=== PATIENT | female | born 1940 | race Two or more races ===

== ENCOUNTER 2022-09-16 17:08 | Emergency (ER) | payer MEDICARE, SELFPAY ==
[2022-09-16] VITALS (8 sets, daily range): BP systolic 164; BP diastolic 68; PULSE 57–68; RESP 16–22; TEMP 36.7; O2SAT 98; BMI 29.3
--- NOTE | 2022-09-16 17:19 | ECG_ITS ---
[facility] Test Date: 2022-09-16 Pat Name: JV JUAREZ Department: Room: - Gender: Female [employer]: : 1940 Requested By: Order Number: [id number] Reading MD: TRACEY KAM Measurements Intervals Webb Rate: 65 P: 60 WI: 148 QRS: -28 QRSD: 90 T: 30 QT: 418 QTc: 430 Interpretive Statements 1100 Sinus rhythm 1102 Sinus arrhythmia 7202 Moderate left axis deviation 9110 normal ECG No previous ECG available for comparison Electronically Signed On 09-17-2022 7:21:17 EDT by TRACEY KAM
--- NOTE | 2022-09-16 17:19 | XR_ITS ---
The [address] [address] Patient Name: JV JUAREZ MRN: [id number] date: 1940 Sex: F Assigned Patient Location: ER Current Patient Location: ER Accession/Order Number: [id number] Exam Date: 09/16/2022 17:45 Report Date: 09/16/2022 18:03 At the request of: YANET ROMERO Procedure: XR chest 1V EXAMINATION: XR chest 1V HISTORY: Cough COMPARISON: None. TECHNIQUE: Portable chest FINDINGS: The lung parenchyma is free of consolidation or infiltrate. No pneumothorax or pleural effusion. The cardiac, mediastinal and hilar contours are normal. The visualized osseous structures exhibit no gross abnormality. XR/XR chest 1V IMPRESSION: No acute cardiopulmonary abnormality. Electronically authenticated by: JOSE SAAB Date: 09/16/2022 18:03
--- NOTE | 2022-09-16 17:20 | ED_ITS ---
Documented by User: KATIA Jones 09/16/22 18:16 HPI - URI/Sore Throat General Chief Complaint: Upper Respiratory Infection Stated Complaint: poss chf Time Seen by Provider: 09/16/22 17:09 Source: patient Limitations: no limitations History of Present Illness HPI Narrative: patient is an 82-year-old female with a history of hypertension, Parkinson's disease who presents to the emergency department with her family for the evaluation of a cough for the last several days. Patient states she has a minimal chronic cough from ALLERGIES but thinks in the last several days her cough has been worse. Her family members are concerned that she may have congestive heart failure. The patient has no history of congestive heart failure. Apparently the patient's had congestive heart failure which was diagnosed after he was coughing and this is their primary concern. Patient denies chest pain, shortness of breath. She states she had acid reflux and burning several days ago after eating and thinks this may have caused her cough to get worse. She has had no peripheral edema. No fevers or vomiting. She states she is otherwise eating and drinking well. Related Data Home Medications Medication Instructions Recorded Confirmed acetaminophen 325 mg capsule 650 mg PO .Q8HR PRN pain 09/16/22 09/16/22 amlodipine 5 mg tablet 5 mg PO DAILY 09/16/22 09/16/22 aspirin 81 mg tablet,delayed 81 mg PO DAILY 09/16/22 09/16/22 release biotin 10 mg tablet 10 mg PO DAILY 09/16/22 09/16/22 carbidopa 25 mg-levodopa 100 mg 1 tab PO QID 09/16/22 09/16/22 tablet (Sinemet) cholecalciferol (vitamin D3) 50 50 mcg PO DAILY 09/16/22 09/16/22 mcg (2,000 unit) capsule cyanocobalamin (vitamin B-12) 500 500 mcg PO DAILY 09/16/22 09/16/22 mcg lozenges docosahexaenoic acid 200 mg mg PO 09/16/22 capsule (Algal [place]-3 DHA) entacapone 200 mg tablet 200 mg PO QID 09/16/22 09/16/22 fluticasone propionate 50 1 spray intranasal DAILY PRN 09/16/22 09/16/22 mcg/actuation nasal allergy symptoms spray,suspension (Allergy Relief (fluticasone)) magnesium 250 mg tablet 250 mg PO DAILY 09/16/22 09/16/22 metoprolol tartrate 25 mg tablet 25 mg PO DAILY 09/16/22 09/16/22 telmisartan 80 mg tablet 80 mg PO DAILY 09/16/22 09/16/22 Previous Rx's Medication Instructions Recorded benzonatate 100 mg capsule 200 mg PO Q6H PRN cough #20 caps 09/16/22 Allergies Allergy/AdvReac Type Severity Reaction Status Date / Time No Known Drug Allergies Allergy Verified 09/16/22 17:15 Review of Systems ROS Constitutional Denies: fever or chills Ears, nose, mouth, and throat Denies: throat pain or neck pain Cardiovascular Denies: chest pain Respiratory Reports: cough; Denies: shortness of breath Gastrointestinal Denies: abdominal pain, nausea or vomiting Genitourinary Denies: painful urination Musculoskeletal Denies: back pain Integumentary/Breast Denies: rash Neurological Denies: headache Hematologic/Lymphatic Denies: easy bruising Allergic/Immunologic Denies: hives Exam Narrative Exam Narrative: Gen.: Awake, alert, in no distress Head: Normocephalic, atraumatic ENT: Moist mucous membranes Respiratory: No respiratory distress, lungs clear bilaterally Cardio: Regular rate and rhythm Gastrointestinal: Abdomen is soft, nondistended and nontender to palpation Extremities: Moves extremities equally, no pedal edema Psych: Normal mood and affect Neuro: No focal neuro deficit Skin: Warm, dry, intact Constitutional Vital Signs, click to edit/add: Last Vital Signs Temp 98.1 F 09/16/22 17:10 Pulse 61 09/16/22 18:10 Resp 21 09/16/22 18:10 BP 164/68 H 09/16/22 17:14 Pulse Ox 98 09/16/22 17:14 O2 Del Method Room Air 09/16/22 17:10 Course Vital Signs Vital signs: Vital Signs Temperature 98.1 F 09/16/22 17:10 Pulse Rate 68 09/16/22 17:10 Respiratory Rate 20 09/16/22 17:10 Blood Pressure 164/68 H 09/16/22 17:10 Pulse Oximetry 98 09/16/22 17:10 Oxygen Delivery Method Room Air 09/16/22 17:10 Temperature 98.1 F 09/16/22 17:10 Pulse Rate 61 09/16/22 18:10 Respiratory Rate 21 09/16/22 18:10 Blood Pressure 164/68 H 09/16/22 17:14 Pulse Oximetry 98 09/16/22 17:14 Oxygen Delivery Method Room Air 09/16/22 17:10 MDM - URI/Sore Throat Medical Records Attestation: I reviewed the patient's medical records. Lab Data Attestation: I reviewed the patient's lab results. Labs: Lab Results 09/16/22 Range/Units 17:33 WBC 5.7 (4.0-11.0) 10^3/uL RBC 4.29 (4.20-5.40) 10^6/uL Hgb 12.9 (12.0-16.0) g/dL Hct 38.6 (36.0-48.0) % MCV 90.0 (81.0-99.0) fL MCH 30.1 (26.7-34.0) pg MCHC 33.4 (29.9-35.2) g/dL RDW 13.2 (11.0-15.0) % Plt Count 221 (150-450) 10^3/uL MPV 10.6 (9.5-13.5) fL Neut % (Auto) 61.8 (43.0-75.0) % Lymph % (Auto) 26.1 (20.5-60.0) % Mccormick % (Auto) 8.5 (1.7-12.0) % Eos % (Auto) 3.0 (0.9-7.0) % Baso % (Auto) 0.3 (0.2-2.0) % Neut # (Auto) 3.5 (1.4-6.5) 10^3/uL Lymph # (Auto) 1.5 (1.2-3.8) 10^3/uL Mccormick # (Auto) 0.5 (0.3-0.8) 10^3/uL Eos # (Auto) 0.2 (0.0-0.7) 10^3/uL Baso # (Auto) 0.0 (0.0-0.1) 10^3/uL Abs Immat Gran (auto) 0.02 (0.00-0.03) 10^3/uL Imm/Tot Granulo (auto) 0.3 (0.0-0.5) % PT 10.4 (9.0-11.6) sec INR 0.98 APTT 27.4 (22.3-36.2) sec Sodium 135 L (136-145) mmol/L Potassium 4.6 (3.5-5.1) mmol/L Chloride 101 (98-107) mmol/L Carbon Dioxide 26.0 (21.0-32.0) mmol/L Anion Gap 12.6 BUN 12.0 (7.0-18.0) mg/dL Creatinine 0.74 (0.55-1.02) mg/dL Est GFR ( Amer) >60 (>=60) Est GFR (Non-Af Amer) >60 (>=60) BUN/Creatinine Ratio 16.2 Glucose 182 H (74-106) mg/dL Calcium 8.8 (8.5-10.1) mg/dL Total Bilirubin 0.6 (0.2-1.0) mg/dL AST 19 (15-37) U/L ALT 11 L (14-59) U/L Alkaline Phosphatase 101 (46-116) U/L Troponin I High Sens 8.3 (4.0-51.3) pg/mL NT-Pro-B Natriuret Pep 704.0 (<=1800.0) pg/mL Total Protein 7.6 (6.4-8.2) g/dL Albumin 3.5 (3.4-5.0) g/dL Globulin 4.1 g/dL Albumin/Globulin Ratio 0.9 Imaging Data Chest x-ray: Attestation: I have reviewed the pertinent imaging results. Radiologist's impression: Procedure: XR chest 1V EXAMINATION: XR chest 1V HISTORY: Cough COMPARISON: None. TECHNIQUE: Portable chest FINDINGS: The lung parenchyma is free of consolidation or infiltrate. No pneumothorax or pleural effusion. The cardiac, mediastinal and hilar contours are normal. The visualized osseous structures exhibit no gross abnormality. IMPRESSION: No acute cardiopulmonary abnormality. Electronically authenticated by: JOSE SAAB Date: 09/16/2022 18:03 ECG Data Attestation: I personally reviewed and interpreted this ECG as follows: (normal sinus rhythm at a rate of sixty-five, sinus arrhythmia noted with no acute ST elevation or ectopy. EKG reviewed by attending physician) ECG interpretation date: 09/16/22 ECG interpretation time: 17:30 Discharge Plan Discharge Chief Complaint: Upper Respiratory Infection Clinical Impression: Cough Patient Disposition: Home, Self-Care Time of Disposition Decision: 18:14 Condition: Good Prescriptions / Home Meds: New benzonatate 100 mg capsule 200 mg PO Q6H PRN (Reason: cough) Qty: 20 0RF No Action acetaminophen 325 mg capsule 650 mg PO .Q8HR PRN (Reason: pain) amlodipine 5 mg tablet 5 mg PO DAILY aspirin 81 mg tablet,delayed release (DR/EC) 81 mg PO DAILY biotin 10 mg tablet 10 mg PO DAILY cholecalciferol (vitamin D3) 50 mcg (2,000 unit) capsule 50 mcg PO DAILY cyanocobalamin (vitamin B-12) 500 mcg lozenge 500 mcg PO DAILY entacapone 200 mg tablet 200 mg PO QID Rx Instructions: administer at the same time as l-dopa/carbidopa dose fluticasone propionate [Allergy Relief (fluticasone)] 50 mcg/actuation spray,suspension 1 spray intranasal DAILY PRN (Reason: allergy symptoms) Rx Instructions: administer into each nostril magnesium 250 mg tablet 250 mg PO DAILY metoprolol tartrate 25 mg tablet 25 mg PO DAILY Algal [place]-3 DHA 200 mg capsule PO carbidopa-levodopa [Sinemet] 25-100 mg tablet 1 tab PO QID telmisartan 80 mg tablet 80 mg PO DAILY Instructions: Acute Cough (ED) Stand Alone Forms: Portal Instructions Referrals: SAL DE LA FUENTE [Primary Care Provider] - 1 week Documented by User: Mary Ann Abad MD 09/20/22 20:36 HPI - URI/Sore Throat General Chief Complaint: Upper Respiratory Infection Stated Complaint: poss chf Time Seen by Provider: 09/16/22 17:09 Related Data Home Medications Medication Instructions Recorded Confirmed acetaminophen 325 mg capsule 650 mg PO .Q8HR PRN pain 09/16/22 09/16/22 amlodipine 5 mg tablet 5 mg PO DAILY 09/16/22 09/16/22 aspirin 81 mg tablet,delayed 81 mg PO DAILY 09/16/22 09/16/22 release biotin 10 mg tablet 10 mg PO DAILY 09/16/22 09/16/22 carbidopa 25 mg-levodopa 100 mg 1 tab PO QID 09/16/22 09/16/22 tablet (Sinemet) cholecalciferol (vitamin D3) 50 50 mcg PO DAILY 09/16/22 09/16/22 mcg (2,000 unit) capsule cyanocobalamin (vitamin B-12) 500 500 mcg PO DAILY 09/16/22 09/16/22 mcg lozenges docosahexaenoic acid 200 mg mg PO 09/16/22 capsule (Algal [place]-3 DHA) entacapone 200 mg tablet 200 mg PO QID 09/16/22 09/16/22 fluticasone propionate 50 1 spray intranasal DAILY PRN 09/16/22 09/16/22 mcg/actuation nasal allergy symptoms spray,suspension (Allergy Relief (fluticasone)) magnesium 250 mg tablet 250 mg PO DAILY 09/16/22 09/16/22 metoprolol tartrate 25 mg tablet 25 mg PO DAILY 09/16/22 09/16/22 telmisartan 80 mg tablet 80 mg PO DAILY 09/16/22 09/16/22 Previous Rx's Medication Instructions Recorded benzonatate 100 mg capsule 200 mg PO Q6H PRN cough #20 caps 09/16/22 Allergies Allergy/AdvReac Type Severity Reaction Status Date / Time No Known Drug Allergies Allergy Verified 09/16/22 17:15 Exam Constitutional Vital Signs, click to edit/add: Last Vital Signs Temp 98.1 F 09/16/22 17:10 Pulse 61 09/16/22 18:10 Resp 21 09/16/22 18:10 BP 164/68 H 09/16/22 17:14 Pulse Ox 98 09/16/22 17:14 O2 Del Method Room Air 09/16/22 17:10 Course Vital Signs Vital signs: Vital Signs Temperature 98.1 F 09/16/22 17:10 Pulse Rate 68 09/16/22 17:10 Respiratory Rate 20 09/16/22 17:10 Blood Pressure 164/68 H 09/16/22 17:10 Pulse Oximetry 98 09/16/22 17:10 Oxygen Delivery Method Room Air 09/16/22 17:10 Temperature 98.1 F 09/16/22 17:10 Pulse Rate 61 09/16/22 18:10 Respiratory Rate 21 09/16/22 18:10 Blood Pressure 164/68 H 09/16/22 17:14 Pulse Oximetry 98 09/16/22 17:14 Oxygen Delivery Method Room Air 09/16/22 17:10 MDM - URI/Sore Throat MDM Narrative Medical decision making narrative: Attending physician attestation I have reviewed the mid-level documentation, agree with the documentation, medical decision making and treatment plan as outlined by the mid-level provider. At this time the patient is without objective evidence of an acute process requiring hospitalization or inpatient management. The patient has remained hemodynamically stable. No additional indication for emergent studies at this time. I answered all questions. Discussed discharge instructions including standard anticipatory guidance and what should prompt a return to the emergency department, including if they get worse are not getting better or develops any new or concerning symptoms. I've given them specific time frame in which to follow-up, and who to follow-up with. The patient demonstrates understanding. Patient is nontoxic and stable for discharge with outpatient follow-up. This note was created with the assistance of a speech recognition program. Although the intention is to generate documents that actually reflects the content of the visit, no guarantees can be provided that every mistake has been identified and corrected by editing. Differential Diagnosis Differential diagnosis: Likely upper respiratory infection Lab Data Attestation: I reviewed the patient's lab results. Labs: Lab Results 09/16/22 Range/Units 17:33 WBC 5.7 (4.0-11.0) 10^3/uL RBC 4.29 (4.20-5.40) 10^6/uL Hgb 12.9 (12.0-16.0) g/dL Hct 38.6 (36.0-48.0) % MCV 90.0 (81.0-99.0) fL MCH 30.1 (26.7-34.0) pg MCHC 33.4 (29.9-35.2) g/dL RDW 13.2 (11.0-15.0) % Plt Count 221 (150-450) 10^3/uL MPV 10.6 (9.5-13.5) fL Neut % (Auto) 61.8 (43.0-75.0) % Lymph % (Auto) 26.1 (20.5-60.0) % Mccormick % (Auto) 8.5 (1.7-12.0) % Eos % (Auto) 3.0 (0.9-7.0) % Baso % (Auto) 0.3 (0.2-2.0) % Neut # (Auto) 3.5 (1.4-6.5) 10^3/uL Lymph # (Auto) 1.5 (1.2-3.8) 10^3/uL Mccormick # (Auto) 0.5 (0.3-0.8) 10^3/uL Eos # (Auto) 0.2 (0.0-0.7) 10^3/uL Baso # (Auto) 0.0 (0.0-0.1) 10^3/uL Abs Immat Gran (auto) 0.02 (0.00-0.03) 10^3/uL Imm/Tot Granulo (auto) 0.3 (0.0-0.5) % PT 10.4 (9.0-11.6) sec INR 0.98 APTT 27.4 (22.3-36.2) sec Sodium 135 L (136-145) mmol/L Potassium 4.6 (3.5-5.1) mmol/L Chloride 101 (98-107) mmol/L Carbon Dioxide 26.0 (21.0-32.0) mmol/L Anion Gap 12.6 BUN 12.0 (7.0-18.0) mg/dL Creatinine 0.74 (0.55-1.02) mg/dL Est GFR ( Amer) >60 (>=60) Est GFR (Non-Af Amer) >60 (>=60) BUN/Creatinine Ratio 16.2 Glucose 182 H (74-106) mg/dL Calcium 8.8 (8.5-10.1) mg/dL Total Bilirubin 0.6 (0.2-1.0) mg/dL AST 19 (15-37) U/L ALT 11 L (14-59) U/L Alkaline Phosphatase 101 (46-116) U/L Troponin I High Sens 8.3 (4.0-51.3) pg/mL NT-Pro-B Natriuret Pep 704.0 (<=1800.0) pg/mL Total Protein 7.6 (6.4-8.2) g/dL Albumin 3.5 (3.4-5.0) g/dL Globulin 4.1 g/dL Albumin/Globulin Ratio 0.9 Discharge Plan Discharge Chief Complaint: Upper Respiratory Infection Clinical Impression: Cough Patient Disposition: Home, Self-Care Time of Disposition Decision: 18:14 Condition: Good Prescriptions / Home Meds: New benzonatate 100 mg capsule 200 mg PO Q6H PRN (Reason: cough) Qty: 20 0RF No Action acetaminophen 325 mg capsule 650 mg PO .Q8HR PRN (Reason: pain) amlodipine 5 mg tablet 5 mg PO DAILY aspirin 81 mg tablet,delayed release (DR/EC) 81 mg PO DAILY biotin 10 mg tablet 10 mg PO DAILY cholecalciferol (vitamin D3) 50 mcg (2,000 unit) capsule 50 mcg PO DAILY cyanocobalamin (vitamin B-12) 500 mcg lozenge 500 mcg PO DAILY entacapone 200 mg tablet 200 mg PO QID Rx Instructions: administer at the same time as l-dopa/carbidopa dose fluticasone propionate [Allergy Relief (fluticasone)] 50 mcg/actuation spray,suspension 1 spray intranasal DAILY PRN (Reason: allergy symptoms) Rx Instructions: administer into each nostril magnesium 250 mg tablet 250 mg PO DAILY metoprolol tartrate 25 mg tablet 25 mg PO DAILY Algal [place]-3 DHA 200 mg capsule PO carbidopa-levodopa [Sinemet] 25-100 mg tablet 1 tab PO QID telmisartan 80 mg tablet 80 mg PO DAILY Instructions: Acute Cough (ED) Stand Alone Forms: Portal Instructions Referrals: SAL DE LA FUENTE [Primary Care Provider] - 1 week
[2022-09-16 17:41] LABS: Basophils Percent Auto 0.3 % (0.2-2.0); Eosinophils Absolute Auto 0.2 10^3/uL (0.0-0.7); Hematocrit 38.6 % (36.0-48.0); Hemoglobin 12.9 g/dL (12.0-16.0); Immature Granulocytes Abs Auto 0.02 10^3/uL (0.00-0.03); Immature Granulocytes Pct Auto 0.3 % (0.0-0.5); Lymphocytes Absolute Auto 1.5 10^3/uL (1.2-3.8); Lymphocytes Percent Auto 26.1 % (20.5-60.0); Mean Corpuscular HGB Conc 33.4 g/dL (29.9-35.2); Mean Corpuscular Hemoglobin 30.1 pg (26.7-34.0); Mean Platelet Volume 10.6 fL (9.5-13.5); Monocytes Absolute Auto 0.5 10^3/uL (0.3-0.8); Monocytes Percent Auto 8.5 % (1.7-12.0); Neutrophils Absolute Auto 3.5 10^3/uL (1.4-6.5); Neutrophils Percent Auto 61.8 % (43.0-75.0); Platelet Count 221 10^3/uL (150-450); Red Blood Count 4.29 10^6/uL (4.20-5.40); Red Cell Distribution Width 13.2 % (11.0-15.0); White Blood Count 5.7 10^3/uL (4.0-11.0)
[2022-09-16 17:53] LABS: Alanine Aminotransferase 11 U/L (14-59); Albumin Globulin Ratio 0.9; Albumin Level 3.5 g/dL (3.4-5.0); Alkaline Phosphatase 101 U/L (46-116); Anion Gap 12.6; Aspartate Amino Transferase 19 U/L (15-37); BUN Creatinine Ratio 16.2; Bilirubin Total 0.6 mg/dL (0.2-1.0); Calcium 8.8 mg/dL (8.5-10.1); Chloride 101 mmol/L (98-107); Estimated GFR (African America >60 (>=60); Estimated GFR (Non-African Ame >60 (>=60); Globulin 4.1 g/dL; Glucose 182 mg/dL (74-106); INR 0.98; Partial Thromboplastin Time 27.4 sec (22.3-36.2); Potassium 4.6 mmol/L (3.5-5.1); Prothrombin Time 10.4 sec (9.0-11.6); Sodium 135 mmol/L (136-145); Total Protein 7.6 g/dL (6.4-8.2)
[2022-09-16 17:59] LABS: Troponin I High Sensitivity 8.3 pg/mL (4.0-51.3)
== END 2022-09-16 18:17 | disposition home or self-care (01) ==
PROVIDERS: Physician Assistant; Emergency Provider Emergency Medicine; PCP Family Medicine
DX: R05.9 Cough, unspecified (principal); I10 Essential (primary) hypertension; G20 Parkinson's disease; Z79.82 Long term (current) use of aspirin; Z79.899 Other long term (current) drug therapy
CPT/HCPCS: 36415; 71045; 80053; 83880; 84484; 85025; 85610; 85730; 93005; 99285